=== PATIENT | female | born 1975 | race Caucasian/White ===

== ENCOUNTER 2021-02-17 12:04 | Emergency (ER) | payer BC ==
--- NOTE | 2021-02-17 12:42 | EDM.PDOC ---
ED HPI GENERAL MEDICAL PROBLEM - General Chief Complaint: Syncope Stated Complaint: DIZZY/WEAK/SYNCOPE Time Seen by Provider: 02/17/21 12:19 Source of Information: Reports: Patient History Limitations: Reports: No Limitations - History of Present Illness INITIAL COMMENTS - FREE TEXT/NARRATIVE: Patient presents with several episodes of fainting spells yesterday morning. Woke up yesterday morning and noted some cramping in her right leg and then when she was gone to get up go to the bathroom she must of had a fainting spell hit the back of her chest/shoulder blade. Her heard a crunch and fall and saw her on the ground with her eyes rolled back she had sat there for just a minute and then when he tried to get her back up again she fainted again with her eyes rolling back. No seizure activity noted. She was then sitting on the floor and then when she tried to stand up a third time same thing happened she passed out again. She at that point had to urinate and she might have leaked a little urine but was able to get to the bathroom finally and urinates. She then started to note that she had some numbness and tingling to upper extremities bilaterally along with breathing more rapidly felt somewhat short of breath. No major headache or double vision but felt like she had some coordination problems as she was trying to drink some water and had difficulty getting the water bottle initially to her mouth. She was then able to drink the water and able to go to bed on the sofa she noted that at times she had "vertigo" in the past and yesterday if she would lay flat she noted spinning with feeling like she is falling toward the left when she was on the couch however the symptoms resolved. She then was able to eat some supper last night did not sleep at all last night however anytime she felt like she fell asleep in a deep state she woke up feeling like she had spinning with her head turning toward the left. No headaches associated with it no double vision or blurry vision history of Lasix no glasses no slurred speech no concentration difficulty denies any chest pain or palpitations initially noted the breathing only after the fainting spells but otherwise no coughing cold symptoms fevers chills or sweats or shortness of breath or pain with breathing. She did break out in a lot of sweats yesterday morning when she had the fainting spells today feeling better, yesterday with the fainting spell she did feel some nausea. Thursday night it does sound like the history is that they did have a day on the [employer] and drink beer and ate late supper and was wondering whether yesterday morning was secondary to dehydration. She never really had fainting spells in the past. Does have a history of high blood pressure, has a history of a hysterectomy in the past, family history of high blood pressure and heart disease - Related Data Allergies Allergy/AdvReac Type Severity Reaction Status Date / Time No Known Allergies Allergy Verified 02/17/21 12:17 Home Meds: Home Meds FLUoxetine [PROzac] 20 mg PO DAILY 02/17/21 [History] Hydrochlorothiazide/Lisinopril [Lisinopril/HCTZ 10-12.5 MG] 0.5 tab PO DAILY 02/17/21 [History] Past Medical History Cardiovascular History: Reports: Hypertension - Past Surgical History Female Surgical History: Reports: Hysterectomy Social & Family History - Tobacco Use Tobacco Use Status *Q: Never Tobacco User Second Hand Smoke Exposure: No - Recreational Drug Use Recreational Drug Use: No ED ROS GENERAL - Review of Systems Review Of Systems: See Below Constitutional: Reports: Weakness, Diaphoresis. Denies: Fever, Chills HEENT: Reports: Vertigo. Denies: Eye Discharge, Eye Pain, Hearing Loss, Rhinitis, Vision Change Respiratory: Denies: Shortness of Breath, Pleuritic Chest Pain, Cough Cardiovascular: Reports: Lightheadedness, Syncope. Denies: Chest Pain, Blood Pressure Problem, Dyspnea on Exertion, Palpitations GI/Abdominal: Reports: Nausea. Denies: Abdominal Pain, Constipation, Diarrhea, Vomiting : Denies: Discharge, Dysuria, Frequency, Urgency Musculoskeletal: Reports: Neck Pain, Shoulder Pain, Leg Pain, Other (Patient has had right calf cramps off and on for several years history of DVT or swelling) Skin: Denies: Rash Neurological: Reports: Paresthesia, Syncope, Tingling. Denies: Confusion, Dizziness, Headache, Numbness, Tremors, Trouble Speaking, Weakness Psychiatric: Reports: No Symptoms - Physical Exam Exam: See Below Exam Limited By: No Limitations General Appearance: Alert, WD/WN, No Apparent Distress Eye Exam: Bilateral Eye: EOMI, PERRL Ears: Other (No nystagmus no gross visual field deficit) Throat/Mouth: Normal Oropharynx Head Exam: Atraumatic Neck: Supple, Other (Does have some tenderness around the right scapular medial border area no neck specific pain). No: Tender Lateral, Tender Midline Respiratory/Chest: No Respiratory Distress, Lungs Clear, Normal Breath Sounds Cardiovascular: Normal Peripheral Pulses, Regular Rate, Rhythm, No Edema, No JVD, No Murmur, Other (No bruits) GI/Abdominal: Normal Bowel Sounds, Soft, Non-Tender, No Distention Neuro Exam (Abbreviated): Alert, Oriented, CN II-XII Intact, Normal Cognition, Normal Gait, Normal Reflexes, No Motor/Sensory Deficits, Other (Romberg test negative cerebellar testing is normal) Extremities: Normal Inspection Psychiatric: Normal Affect, Normal Mood Skin Exam: Warm #1 Interpretation EKG Date: 02/17/21 Time: 12:47 Rhythm: NSR QT: Prolonged (Reviewed EKG showing sinus rhythm rate rate of 64 MS 169 QRS 68 QT corrected 415 normal EKG no acute findings or ischemic changes are noted.) Course - Vital Signs Last Recorded V/S: Last Vital Signs Temp 97.5 F 02/17/21 14:50 Pulse 74 02/17/21 14:50 Resp 15 02/17/21 14:50 BP 122/80 02/17/21 14:50 Pulse Ox 95 02/17/21 14:50 Orthostatic Blood Pressure [ 121/91 Standing] Orthostatic Blood Pressure [ 130/87 Sitting] Orthostatic Blood Pressure [ 121/73 Supine] - Orders/Labs/Meds Orders: Active Orders 24 hr Category Date Time Status EKG 12 Lead [EK] Stat Ther 02/17/21 13:14 Ordered Labs: Laboratory Tests 02/17/21 02/17/21 02/17/21 Range/Units 13:37 13:40 13:40 WBC 5.70 (3.98-10.04) K/mm3 RBC 4.66 (3.98-5.22) M/mm3 Hgb 14.4 (11.2-15.7) gm/dl Hct 43.5 (34.1-44.9) % MCV 93.3 (79.4-94.8) fl MCH 30.9 (25.6-32.2) pg MCHC 33.1 (32.2-35.5) g/dl RDW Std Deviation 42.2 (36.4-46.3) fL Plt Count 217 (182-369) K/mm3 MPV 11.4 (9.4-12.3) fl Neut % (Auto) 52.1 (34.0-71.1) % Lymph % (Auto) 34.7 (19.3-51.7) % Jennings % (Auto) 9.5 (4.7-12.5) % Eos % (Auto) 2.8 (0.7-5.8) Baso % (Auto) 0.7 (0.1-1.2) % Neut # (Auto) 2.97 (1.56-6.13) K/mm3 Lymph # (Auto) 1.98 (1.18-3.74) K/mm3 Jennings # (Auto) 0.54 H (0.24-0.36) K/mm3 Eos # (Auto) 0.16 (0.04-0.36) K/mm3 Baso # (Auto) 0.04 (0.01-0.08) K/mm3 D-Dimer, Quantitative < 0.19 L (0.19-0.50) mg/L Sodium (136-145) mEq/L Potassium (3.5-5.1) mEq/L Chloride (98-107) mEq/L Carbon Dioxide (21-32) mEq/L Anion Gap (5-15) BUN (7-18) mg/dL Creatinine (0.55-1.02) mg/dL Est Cr Clr Drug Dosing mL/min Estimated GFR (MDRD) (>60) mL/min BUN/Creatinine Ratio (14-18) Glucose (70-99) mg/dL Calcium (8.5-10.1) mg/dL Total Bilirubin (0.2-1.0) mg/dL AST (15-37) U/L ALT (14-59) U/L Alkaline Phosphatase (46-116) U/L Troponin I (0.00-0.056) ng/mL C-Reactive Protein (<1.0) mg/dL Total Protein (6.4-8.2) g/dl Albumin (3.4-5.0) g/dl Globulin gm/dL Albumin/Globulin Ratio (1-2) Urine Color Light yellow (Yellow) Urine Appearance Clear (Clear) Urine pH 6.0 (5.0-8.0) Ur Specific Naoma 1.015 (1.005-1.030) Urine Protein Negative (Negative) Urine Glucose (UA) Negative (Negative) Urine Ketones Negative (Negative) Urine Occult Blood Negative (Negative) Urine Nitrite Negative (Negative) Urine Bilirubin Negative (Negative) Urine Urobilinogen 0.2 (0.2-1.0) Ur Leukocyte Esterase Negative (Negative) 02/17/21 Range/Units 13:40 WBC (3.98-10.04) K/mm3 RBC (3.98-5.22) M/mm3 Hgb (11.2-15.7) gm/dl Hct (34.1-44.9) % MCV (79.4-94.8) fl MCH (25.6-32.2) pg MCHC (32.2-35.5) g/dl RDW Std Deviation (36.4-46.3) fL Plt Count (182-369) K/mm3 MPV (9.4-12.3) fl Neut % (Auto) (34.0-71.1) % Lymph % (Auto) (19.3-51.7) % Jennings % (Auto) (4.7-12.5) % Eos % (Auto) (0.7-5.8) Baso % (Auto) (0.1-1.2) % Neut # (Auto) (1.56-6.13) K/mm3 Lymph # (Auto) (1.18-3.74) K/mm3 Jennings # (Auto) (0.24-0.36) K/mm3 Eos # (Auto) (0.04-0.36) K/mm3 Baso # (Auto) (0.01-0.08) K/mm3 D-Dimer, Quantitative (0.19-0.50) mg/L Sodium 139 (136-145) mEq/L Potassium 4.2 (3.5-5.1) mEq/L Chloride 103 (98-107) mEq/L Carbon Dioxide 29 (21-32) mEq/L Anion Gap 11.2 (5-15) BUN 14 (7-18) mg/dL Creatinine 1.1 H (0.55-1.02) mg/dL Est Cr Clr Drug Dosing 57.50 mL/min Estimated GFR (MDRD) 53 (>60) mL/min BUN/Creatinine Ratio 12.7 L (14-18) Glucose 84 (70-99) mg/dL Calcium 8.5 (8.5-10.1) mg/dL Total Bilirubin 0.6 (0.2-1.0) mg/dL AST 15 (15-37) U/L ALT 22 (14-59) U/L Alkaline Phosphatase 48 (46-116) U/L Troponin I < 0.017 (0.00-0.056) ng/mL C-Reactive Protein <0.2 (<1.0) mg/dL Total Protein 7.3 (6.4-8.2) g/dl Albumin 4.1 (3.4-5.0) g/dl Globulin 3.2 gm/dL Albumin/Globulin Ratio 1.3 (1-2) Urine Color (Yellow) Urine Appearance (Clear) Urine pH (5.0-8.0) Ur Specific Naoma (1.005-1.030) Urine Protein (Negative) Urine Glucose (UA) (Negative) Urine Ketones (Negative) Urine Occult Blood (Negative) Urine Nitrite (Negative) Urine Bilirubin (Negative) Urine Urobilinogen (0.2-1.0) Ur Leukocyte Esterase (Negative) White blood cell count 5700 hemoglobin 14.4 hematocrit 43.5 platelet count is 217,000 D-dimer is less than 0.19 urinalysis is within normal limits sodium 139 potassium 4.2 chloride 103 CO2 is 29 BUN is 14 creatinine 1.1 GFR is 53 glucose is 84 LFTs are normal calcium 8.5 troponin is negative total protein and albumin are within normal limits - Radiology Interpretation Free Text/Narrative:: CT head return back 1335, no acute findings noted on noncontrast CT scan Chest x-ray is within normal limits no acute findings noted. Minimal scoliosis noted of the spine. - Re-Assessments/Exams Free Text/Narrative Re-Assessment/Exam: 02/17/21 14:37 Patient has been doing well negative orthostasis no arrhythmia reviewed labs CT chest x-ray EKG with the patient at this point do not understand exactly the stefania ology although it could be from dehydration especially understanding the day before at the [employer], having drank some beers and might have been dehydrated her creatinine is a little bit bumped today and suspect that she may benefit from more fluids intake. Recommend follow-up with her primary care physician and given return precautions. Departure - Departure Time of Disposition: 14:20 Disposition: Home, Self-Care 01 Condition: Good Clinical Impression: Dehydration Syncope Qualifiers: Syncope type: unspecified Qualified Code(s): R55 - Syncope and collapse - Discharge Information Instructions: Syncope, [id number], Dehydration, Adult Referrals: Darren Holland MD [Primary Care Provider] - Forms: ED Department Discharge Additional Instructions: Make sure you drink plenty of water and fluids daily, follow-up with your primary care provider this week. Return if any recurrent fainting spells, chest pain, dizziness especially associated with any balance problems any headaches vision changes or focal weakness. Sepsis Event Note (ED) - Evaluation Sepsis Screening Result: No Definite Risk - Focused Exam Vital Signs: Vital Signs Temp Pulse Resp BP Pulse Ox 02/17/21 14:50 97.5 F 74 15 122/80 95 02/17/21 12:14 97.1 F 80 16 139/86 97 - My Orders Last 24 Hours: My Active Orders 02/17/21 13:14 EKG 12 Lead [EK] Stat - Assessment/Plan Last 24 Hours: My Active Orders 02/17/21 13:14 EKG 12 Lead [EK] Stat
--- NOTE | 2021-02-17 13:37 | CT ---
Head CT Technique: Multiple axial sections through the brain were obtained. Intravenous contrast was not utilized. Reconstructed coronal and sagittal images were obtained. Comparison: No previous intracranial imaging is available. Findings: Ventricles along with basal cisterns and sulci over the convexities are within normal limits for the patient's age. No abnormal parenchymal densities are seen. No evidence of intracranial hemorrhage is seen. No midline shift or mass-effect is appreciated. Bone window settings were reviewed. Visualized mastoid sinuses and paranasal sinuses show nothing acute. No acute calvarial abnormality is appreciated. Impression: 1. Nothing acute is appreciated on noncontrast head CT study. Diagnostic code #1
--- NOTE | 2021-02-17 13:45 | CR ---
Chest: PA view of the chest was obtained. Comparison: No prior chest imaging is available. Heart size and mediastinum are normal. Lungs are clear with no acute parenchymal change. Minimal scoliosis is noted within the spine. No acute osseous abnormality is appreciated. Impression: 1. Nothing acute is seen on 2 view chest x-ray. Diagnostic code #1
== END 2021-02-17 14:55 | disposition home or self-care (01) ==
LOC: JD.ED 12:04
DX: E86.0 Dehydration (principal); I10 Essential (primary) hypertension; Z79.899 Other long term (current) drug therapy
CPT/HCPCS: 36415; 70450; 70450-26; 71045; 71045-26; 80053; 81003; 84484; 85025; 85379; 86140; 93005; 93010; 99284; 99284-25